=== PATIENT | male | born 1975 | race Caucasian/White ===

== ENCOUNTER 2017-01-18 12:50 | Emergency (ER) | payer OTHER ==
[2017-01-18 12:59] VITALS: TEMP 98.2
[2017-01-18] MEDS ORDERED: NS 1,000 ML IV ONE ×2 (14:09→15:04)
[2017-01-18] MEDS ORDERED: ONDANSETRON 4 MG/2 ML VIAL IVP ONE (14:10)
[2017-01-18] MEDS ORDERED: IPRATROPIUM/ALBUTEROL 3 ML DEYVIAL IH ONE (14:11)
--- NOTE | 2017-01-18 14:15 | EDPHY ---
H & P Stated Complaint: sob/weight loss last week HPI/ROS: CHIEF COMPLAINT: Shortness of breath, weakness, cough HISTORY OF PRESENT ILLNESS: Patient complains of shortness of breath and weakness that abruptly worsened today. Originally started on Tuesday. This started with some malaise and fatigue. [id number] at that time and has worsened. It abruptly changed today while at work. Associated with cough, subjective fever and chills, shortness of breath, malaise. No chest pain. No headache, neck pain or stiffness. No trauma or injury. No abdominal urinary complaints. He does smoke. No diabetes. No coronary artery disease. No history of venous thrombolic event or risk factors for such. No other associated complaints or modifying factors. REVIEW OF SYSTEMS: Ten systems reviewed and are negative unless otherwise noted in the HPI PERTINENT MEDICAL HISTORY: Smoker EXAMINATION General Appearance: Alert, no distress Head: normocephalic, atraumatic Eyes: Pupils equal and round, no conjunctival pallor or injection ENT, Mouth: Mucous membranes moist. Uvula midline. No erythema edema. Neck: Normal inspection, supple, non-tender Respiratory: Coarse rhonchi on the right eye, dry crackles on the right. No consolidation or diminishment. No retractions. Cardiovascular: Regular rate and rhythm. No murmur. Pulses intact distally. Gastrointestinal: Abdomen is soft and nontender Back: non-tender, no bony abnormalities Neurological: GCS 15 A&O, nonfocal, normal gait Skin: Warm and dry, no rash Extremities: Nontender, no pedal edema Psychiatric: Mood and affect normal DIFFERENTIAL DIAGNOSES: Including but not limited to community-acquired pneumonia, bronchitis, viral infection, lower respiratory tract infection, PE, congestive heart failure, pulmonary edema, ACS MDM: 2:10 p.m. Cough, shortness of breath, malaise, subjective fever at home. Patient has a history examination that suggest a right-sided community-acquired pneumonia. Vital signs are all within normal limits. He is in no acute distress. Laboratory studies, chest x-ray been ordered. I will provide IV fluid resuscitation and DuoNeb treatment. 3:30 p.m. 4:29 p.m. Notified by radiologist Dr. Lugo. No acute findings on CT scan of the chest. I have re-evaluated the patient. He is resting comfortably. Vital signs are still stable. Discharged home with 1 dose of Decadron as well as Zithromax for the possibility of bacterial bronchitis. He is comfortable with this pain, he will be discharged home stable condition. SUPERVISION: Source: Patient Exam Limitations: No limitations - Personal History Current Tetanus/Diphtheria Vaccine: Yes - Medical/Surgical History Hx Asthma: No Hx Chronic Respiratory Disease: No Hx Diabetes: No Hx Cardiac Disease: No Hx Renal Disease: No Hx Cirrhosis: No Hx Alcoholism: No Hx HIV/AIDS: No Hx Splenectomy or Spleen Trauma: No Other PMH: denies - Social History Smoking Status: Current every day smoker Constitutional: Initial Vital Signs Temperature (C) 98.2 F 01/18/17 12:56 Heart Rate 75 01/18/17 12:56 Respiratory Rate 18 01/18/17 12:56 Blood Pressure 146/58 H 01/18/17 12:56 O2 Sat (%) 98 01/18/17 12:56 O2 Delivery Mode Room Air Allergies/Adverse Reactions: No Known Allergies Allergy (Verified 01/18/17 12:56) Home Medications: Medication Instructions Recorded Albuterol [Proventil Inhaler HFA 1 - 2 puffs IH Q4H PRN #1 mdi 01/18/17 (*)] Azithromycin [Zithromax] 250 mg PO DAILY #6 tab 01/18/17 Benzonatate [Tessalon Pearles (RX)] 100 mg PO TID PRN #15 cap 01/18/17 Dexamethasone [Decadron 4 MG (*)] 8 mg PO DAILY #2 tab 01/18/17 Medical Decision Making - Diagnostics Imaging Results: Imaging Impressions Chest X-Ray 01/18/17 14:10 Impression: 1. Possible diffuse interstitial lung disease. Might this patient have viral pneumonitis? There is no focal pneumonia. 2. Remote trauma to the thoracic spine. Chest/Thorax CTA 01/18/17 15:04 Impression: 1. No evidence of pulmonary embolus using CT protocol. 2. Mild anterior wedging mid to lower thoracic spine with associated hypertrophic anterior osteophytes and disk space narrowing as well as accentuation of the anterior kyphosis. This appears to be a chronic process possibly from prior trauma. If indicated, consider DEXA scan at some point for further evaluate bone mineral density and to rule out underlying osteoporosis. Findings discussed with Oscar MCGUIRE at 16:28 hour, 01/18/2017. - Data Points Laboratory Results: Laboratory Results 01/18/17 14:14 01/18/17 14:14 01/18/17 01/18/17 01/18/17 14:14 14:14 14:14 WBC 6.87 10^3/uL 10^3/uL (3.80-9.50) RBC 4.80 10^6/uL 10^6/uL (4.40-6.38) Hgb 15.1 g/dL g/dL (13.7-17.5) Hct 43.7 % % (40.0-51.0) MCV 91.0 fL fL (81.5-99.8) MCH 31.5 pg pg (27.9-34.1) MCHC 34.6 g/dL g/dL (32.4-36.7) RDW 13.1 % % (11.5-15.2) Plt Count 273 10^3/uL 10^3/uL (150-400) MPV 9.9 fL fL (8.7-11.7) Neut % (Auto) 76.9 % H % (39.3-74.2) Lymph % (Auto) 15.7 % % (15.0-45.0) [place] % (Auto) 6.4 % % (4.5-13.0) Eos % (Auto) 0.4 % L % (0.6-7.6) Baso % (Auto) 0.3 % % (0.3-1.7) Nucleat RBC Rel Count 0.0 % % (0.0-0.2) Absolute Neuts (auto) 5.28 10^3/uL 10^3/uL (1.70-6.50) Absolute Lymphs (auto) 1.08 10^3/uL 10^3/uL (1.00-3.00) Absolute Monos (auto) 0.44 10^3/uL 10^3/uL (0.30-0.80) Absolute Eos (auto) 0.03 10^3/uL 10^3/uL (0.03-0.40) Absolute Basos (auto) 0.02 10^3/uL 10^3/uL (0.02-0.10) Absolute Nucleated RBC 0.00 10^3/uL 10^3/uL (0-0.01) Immature Gran % 0.3 % % (0.0-1.1) Immature Gran # 0.02 10^3/uL 10^3/uL (0.00-0.10) D-Dimer 0.59 ug/mLFEU H ug/mLFEU (0.00-0.50) Sodium 145 mEq/L H mEq/L (134-144) Potassium 3.8 mEq/L mEq/L (3.5-5.2) Chloride 108 mEq/L mEq/L (97-110) Carbon Dioxide 24 mEq/l mEq/l (22-31) Anion Gap 13 mEq/L mEq/L (8-16) BUN 12 mg/dL mg/dL (7-23) Creatinine 0.7 mg/dL mg/dL (0.7-1.3) Estimated GFR > 60 Glucose 109 mg/dL H mg/dL (70-100) Calcium 9.7 mg/dL mg/dL (8.5-10.4) Troponin I < 0.012 ng/mL ng/mL (0-0.034) Lipase 67.0 IU/L IU/L (23-300) Medications Given: Discontinued Medications Albuterol/Ipratropium (Duoneb) 3 ml IH EDNOW ONE Stop: 01/18/17 14:12 Last Admin: 01/18/17 14:36 Dose: 3 ml Sodium Chloride (Ns) 1,000 mls @ 0 mls/hr IV ONCE ONE PRN Reason: Wide Open Stop: 01/18/17 14:10 Last Admin: 01/18/17 14:37 Dose: 1,000 mls Sodium Chloride (Ns) 1,000 mls @ 0 mls/hr IV ONCE ONE PRN Reason: Wide Open Stop: 01/18/17 15:05 Last Admin: 01/18/17 15:15 Dose: 1,000 mls Ondansetron HCl (Zofran) 4 mg IVP EDNOW ONE Stop: 01/18/17 14:11 Last Admin: 01/18/17 14:37 Dose: 4 mg Departure - Departure Disposition: Home, Routine, Self-Care Clinical Impression: Acute bronchitis Qualifiers: Bronchitis organism: unspecified organism Qualified Code(s): J20.9 - Acute bronchitis, unspecified Condition: Good Instructions: Acute Bronchitis (ED) Additional Instructions: Medications as discussed as needed. Follow up with primary care physician. Return here for any chest pain or changes in her symptoms Referrals: NONE *PRIMARY CARE P,. [Primary Care Provider] - As per Instructions Jacquelyn Zamora MD [Medical Doctor] - As per Instructions Stand Alone Forms: Work Excuse Prescriptions: Albuterol [Proventil Inhaler HFA (*)] 1 - 2 puffs IH Q4H PRN #1 mdi PRN Reason: Short Of Breath/Dyspnea Azithromycin [Zithromax] 250 mg PO DAILY #6 tab Benzonatate [Tessalon Pearles (RX)] 100 mg PO TID PRN #15 cap PRN Reason: Cough, Mild Dexamethasone [Decadron 4 MG (*)] 8 mg PO DAILY #2 tab
--- NOTE | 2017-01-18 14:19 | CPEKG ---
Heart Rate: 63 RR Interval: 952 P-R Interval: 152 QRSD Interval: 98 QT Interval: 384 QTC Interval: 394 P [place]: 68 QRS [place]: 19 T Wave [place]: 32 EKG Severity - NORMAL ECG - EKG Impression: SINUS RHYTHM Electronically Signed By: Ulises Simpson 18-Jan-2017 21:03:46
[2017-01-18 14:36] LABS: % IMMATURE GRANULYOCYTES 0.3 % (0.0-1.1); ABSOLUTE IMMATURE GRANULOCYTES 0.02 10^3/uL (0.00-0.10); ADD DIFF? NO; ADD MORPH? NO; ADD SCAN? NO; ATYPICAL LYMPHOCYTE FLAG 40 (0-99); FRAGMENT RBC FLAG 0 (0-99); HEMATOCRIT 43.7 % (40.0-51.0); HEMOGLOBIN 15.1 g/dL (13.7-17.5); LEFT SHIFT FLG 0 (0-99); LIPEMIA HEMOLYSIS FLAG 90 (0-99); MEAN CELL HEMOGLOBIN 31.5 pg (27.9-34.1); MEAN CELL HEMOGLOBIN CONCENTR. 34.6 g/dL (32.4-36.7); MEAN PLATELET VOLUME 9.9 fL (8.7-11.7); PLATELET CLUMPS FLAG 0 (0-99); PLATELET COUNT 273 10^3/uL (150-400); RED CELL DISTRIBUTION WIDTH 13.1 % (11.5-15.2)
[2017-01-18 14:55] LABS: ANION GAP 13 mEq/L (8-16); CALCIUM 9.7 mg/dL (8.5-10.4); CARBON DIOXIDE 24 mEq/l (22-31); CHLORIDE 108 mEq/L (97-110); CREATININE 0.7 mg/dL (0.7-1.3); GLOMERULAR FILTRATION RATE > 60; GLUCOSE 109 mg/dL (70-100); POTASSIUM 3.8 mEq/L (3.5-5.2); SODIUM 145 mEq/L (134-144)
[2017-01-18 15:05] LABS: TROPONIN I < 0.012 ng/mL (0-0.034)
[2017-01-18] MEDS ORDERED: IOPAMIDOL (ISOVUE 370) 100 ML BTL IV ONE (15:21)
[2017-01-18 16:07] VITALS: PULSE 78
[2017-01-18 16:53] VITALS: BP 128/80; RESP 16; O2SAT 95
== END 2017-01-18 16:53 | disposition home or self-care (01) ==
DX: J20.9 Acute bronchitis, unspecified (principal); F17.200 Nicotine dependence, unspecified, uncomplicated
CPT/HCPCS: 96374; J2405; Q9967